=== PATIENT | female | born 1995 | race African-American/Black ===

== ENCOUNTER → 2024-11-24 11:17 | Outpatient (REF) | payer OTHER, SELFPAY ==
[2024-11-25 19:46] LABS: Hepatitis B Surface Antibody Negative
[2024-11-26 08:42] LABS: Quantiferon Mitogen minus NIL 9.96 IU/mL; Quantiferon NIL 0.04 IU/mL; Quantiferon Plus TB1 minus NIL 0.01 IU/mL (<=0.34); Quantiferon Plus TB2 minus NIL 0.01 IU/mL (<=0.34); Quantiferon TB Gold Plus Negative (Negative)
== END ==
LOC: REG 11:17
PROVIDERS: ATTENDING PHYSICIAN Nurse Practitioner
DX: Z23 Encounter for immunization (principal)
CPT/HCPCS: 36415; 86480; 86706